=== PATIENT | female | born 1970 | race Caucasian/White ===

== ENCOUNTER → 2019-11-17 | Outpatient (CLI) | payer OTHER ==
[~2019-11-17] MED LIST: GASTROGRAFIN SOLUTION 30ML (Q9963) As Ordered ONE; ISOVUE-370 76% 100ML VIAL (Q9967) As Ordered ONE
--- NOTE | 2019-11-17 13:47 | REP ---
REASON: Potential left renal neoplasm. COMPARISON: CT 09/09/2015. Renal ultrasound examination of 09/30/2019 showed a potential left renal parapelvic cyst. CONTRAST: 100 mL Isovue 370. The lung bases are clear and unchanged. The liver, gallbladder, spleen, pancreas, adrenal glands, and kidneys are essentially unchanged from the prior exam. This is with the exception of minimal left renal inferior pole caliectasis without aura hydronephrosis. The abdominal aorta and paraaortic regions are within normal limits and unchanged. The bowel loops and their mesenteries are within normal limits. There is no free fluid or free air. CT PELVIS: There is no evidence of a small or adenopathy. There is no free fluid or free air. The bowel loops and their mesenteries are again seen to be within normal limits. Bone window technique through the examination shows the osseous structures to be stable and intact. IMPRESSION: Mild left renal caliectasis as described above of uncertain etiology and without any abnormal renal enhancement, nodule, or mass. Correlate clinically with appropriate followup. Other findings as described above. Electronically Signed by Sebastien Hernandez DO 11/17/2019 03:05 P
== END ==
LOC: M RAD 10:57
PROVIDERS: ATTEND Internal Medicine Nephrology
DX: D41.02 Neoplasm of uncertain behavior of left kidney (principal)
CPT/HCPCS: 74178; Q9963; Q9967

== ENCOUNTER 2020-01-17 11:05 | Emergency (ER) | payer OTHER ==
[~2020-01-17] VITALS: Ht 170.2 cm; Wt 53.9 kg
[2020-01-17 11:06] VITALS: BP 132/88
[2020-01-17] MEDS ORDERED: FISH1000 PO (11:17)
[2020-01-17] MEDS ORDERED: VITAD400CA FT (11:17)
[2020-01-17] MEDS ORDERED: VIAC1CHW PO (11:17)
[2020-01-17] MEDS ORDERED: BOOSTRIX/ADACEL VACCINE (DIPHTH/PERTUSS/ACELL/TETANUS) 0.5ML SYR IM ONE (11:45)
--- NOTE | 2020-01-17 12:20 | REP ---
Clinical: Trauma. Technique: Axial noncontrast images from the skull base to the vertex with coronal re-formations. Comparison: None . Findings: The ventricles, sulci, and cisterns are normal in position and appearance. Schroeder-white differentiation is maintained. No acute intracranial hemorrhage, mass/mass effect, pathology or trauma/injury. No evidence for acute infarction. No extra-axial fluid collection. Calvarium is intact. Paranasal sinuses and mastoid air cells are clear. Impression: Normal noncontrast head CT. No evidence for acute intracranial pathology or trauma/injury. Electronically Signed by Noe Barreto MD 01/17/2020 12:11 P
--- NOTE | 2020-01-17 12:25 | REP ---
Clinical: Trauma. Technique: Axial noncontrast images through the facial bones to include the mandible with coronal and sagittal re-formations. Findings: The osseous structures are intact and there is no evidence for fracture or dislocation. Specifically, the bilateral zygomatic arches, nasal bones, and mandible including bilateral temporomandibular joints appear normal and symmetric. The sinuses and mastoid air cells are all well aerated and clear without fluid level to suggest occult trauma. The bilateral orbits including the globes and intraconal contents appear symmetric and normal. The surrounding soft tissues are grossly unremarkable. Impression: Normal maxillofacial CT. No evidence for acute pathology or trauma/injury. Electronically Signed by Noe Barreto MD 01/17/2020 12:16 P
--- NOTE | 2020-01-17 12:27 | REP ---
Clinical: Trauma . Technique: Axial noncontrast images from the skull base to the thoracic inlet with coronal and sagittal re-formations Findings: Normal alignment and lordosis is maintained. Cervical vertebral bodies including transverse processes and spinous processes are intact and there is no evidence for acute fracture / compression injury or subluxation. Spinal canal is patent. Posterior elements are intact. Paravertebral soft tissues are normal. Impression: Normal noncontrast cervical spine CT. No evidence for acute pathology or trauma/injury. Electronically Signed by Noe Barreto MD 01/17/2020 12:18 P
[2020-01-17] MEDS ORDERED: LIDOCAINE 2% MDV 20ML VIAL SC ONE (12:45)
== END 2020-01-17 13:25 | disposition home or self-care (01) ==
LOC: M ED 11:05
DX: S09.90XA Unspecified injury of head, initial encounter (principal); S16.1XXA Strain of muscle, fascia and tendon at neck level, initial encounter; S69.91XA Unspecified injury of right wrist, hand and finger(s), initial encounter; S01.82XA Laceration with foreign body of other part of head, initial encounter; Y93.55 Activity, bike riding; Y92.89 Other specified places as the place of occurrence of the external cause

== ENCOUNTER → 2020-11-28 | Outpatient (CLI) | payer OTHER ==
[~2020-11-28] MED LIST changes: +FISH1000 PO; -GASTROGRAFIN SOLUTION 30ML (Q9963) As Ordered ONE; -ISOVUE-370 76% 100ML VIAL (Q9967) As Ordered ONE; +VIAC1CHW PO; +VITAD400CA FT
--- NOTE | 2020-11-28 14:22 | REP ---
INDICATION: CYST OF KIDNEY, HYDRONEPHROSIS COMPARISON: None TECHNIQUE: Real time rider scale ultrasound examination using curved array transducer. FINDINGS: Bilateral kidneys are normal in contour, size, echogenicity, and reniform shape. No hydronephrosis, nephrolithiasis, cystic or renal mass lesion. Right kidney measures 10.2 x 4.8 x 3.8 cm. Left kidney measures 10.0 x 5.1 x 5.2 cm. Bladder is grossly unremarkable. IMPRESSION: 1. Normal renal ultrasound. <Electronically signed by Noe Barreto > 11/28/20 [id number]
== END ==
LOC: M RAD 13:38
PROVIDERS: ATTEND Internal Medicine Nephrology
DX: N13.39 Other hydronephrosis (principal); N28.1 Cyst of kidney, acquired

== ENCOUNTER → 2021-01-30 | Outpatient (CLI) | payer SELFPAY | LOC: M LABSMTC 11:43 | PROVIDERS: ATTEND Pediatrics | DX: Z11.52 Encounter for screening for COVID-19 (principal) ==

== ENCOUNTER 2024-01-25 16:45 | Emergency (ER) | payer OTHER ==
[~2024-01-25] VITALS: Ht 170.2 cm; Wt 54.5 kg
[2024-01-25 16:45] VITALS: TEMP 97.3
[2024-01-25] MEDS ORDERED: CLIN1GEL19 (16:58)
[2024-01-25 18:45] VITALS: BP 131/77; O2SAT 99
== END 2024-01-25 19:23 | disposition home or self-care (01) ==
LOC: M ED 16:45
DX: S92.511A Displaced fracture of proximal phalanx of right lesser toe(s), initial encounter for closed fracture (principal); W19.XXXA Unspecified fall, initial encounter; J38.1 Polyp of vocal cord and larynx; Y92.009 Unspecified place in unspecified non-institutional (private) residence as the place of occurrence of the external cause; Y93.89 Activity, other specified; Y99.9 Unspecified external cause status; Z79.899 Other long term (current) drug therapy

== ENCOUNTER → 2025-04-05 | Outpatient (REF) | payer OTHER ==
[~2025-04-05] MED LIST changes: +CLIN1GEL19
== END ==
LOC: M LAB REF 11:43
PROVIDERS: ATTEND Physician Assistant Medical
DX: B34.9 Viral infection, unspecified (principal)